=== PATIENT | female | born 2000 | race Caucasian/White ===

== ENCOUNTER 2024-11-27 13:16 | Outpatient (CLI) | payer OTHER, SELFPAY | END 2024-11-27 13:17 | disposition home or self-care (01) | LOC: NFLDREF 11-30 06:43 | DX: N89.8 Other specified noninflammatory disorders of vagina (principal); N39.0 Urinary tract infection, site not specified; R11.0 Nausea; B96.89 Other specified bacterial agents as the cause of diseases classified elsewhere | CPT/HCPCS: 87086 ==